=== PATIENT | female | born 1985 | race African-American/Black ===

== ENCOUNTER 2023-04-03 18:23 | Emergency (ER) | payer BC, OTHER ==
[~2023-04-03] VITALS: Ht 157.5 cm; Wt 67.0 kg
[2023-04-03 18:33] VITALS: TEMP 97.7; O2SAT 100
[2023-04-03] MEDS ORDERED: KETOROLAC 15MG/ML VIAL IM ONE (19:45)
[2023-04-03] MEDS ORDERED: CYCLOBENZAPRINE 10MG TABLET PO ONE (19:45)
[2023-04-03 20:36] VITALS: BP 130/84; PULSE 58; RESP 14
[2023-04-03] MEDS ORDERED: NAPR-1176 MT (20:44)
== END 2023-04-03 21:52 | disposition home or self-care (01) ==
LOC: ER 18:23
DX: S16.1XXA Strain of muscle, fascia and tendon at neck level, initial encounter (principal); E03.9 Hypothyroidism, unspecified; V49.49XA Driver injured in collision with other motor vehicles in traffic accident, initial encounter; Y93.89 Activity, other specified; Y92.89 Other specified places as the place of occurrence of the external cause; Y99.8 Other external cause status
CPT/HCPCS: 81025; 72040; 96372; 99283; J1885; Z7610